=== PATIENT | female | born 1960 | race Two or more races ===

== ENCOUNTER 2016-12-02 15:19 | Outpatient (CLI) | payer BC ==
[2016-12-03 07:25] LABS: *RAPID PLASMA REAGIN QUAL Non Reactive (Non Reactive)
[2016-12-03 09:21] LABS: HEPATITIS C VIRUS AB 0.1 s/co ratio (0.0-0.9)
[2016-12-03 09:56] LABS: HIV-1 p24 ANTIGEN NON REACTIVE (NONREACTIVE); HIV-1/2 ANTIBODY NON REACTIVE (NONREACTIVE)
== END 2016-12-02 23:59 | disposition home or self-care (01) ==
LOC: LAB 15:19
PROVIDERS: ATTEND Family Medicine
DX: Z11.3 Encounter for screening for infections with a predominantly sexual mode of transmission (principal)
CPT/HCPCS: 86592; 86803; 87491; 87591; 88142

== ENCOUNTER 2016-12-22 08:56 | Outpatient (CLI) | payer BC | END 2016-12-22 23:59 | disposition home or self-care (01) | LOC: US 08:56 | PROVIDERS: ATTEND Family Medicine | DX: N85.2 Hypertrophy of uterus (principal) | CPT/HCPCS: 76856-TC ==

== ENCOUNTER 2017-03-12 09:39 | Outpatient (CLI) | payer BC ==
[2017-03-12 10:14] LABS: BASOPHILS % (AUTO) 0.3 % (0.0-2.0); EOSINOPHILS # (AUTO) 0.1 /CMM (0.0-0.7); EOSINOPHILS % (AUTO) 2.3 % (0.0-6.0); HEMATOCRIT 40 % (33-45); HEMOGLOBIN 13.3 g/dL (11.5-14.8); LYMPHOCYTES # (AUTO) 2.1 /CMM (0.8-4.8); LYMPHOCYTES % (AUTO) 34.5 % (20.0-44.0); MEAN CORPUSCULAR HEMOGLOBIN 28 PG (26.0-33.0); MEAN CORPUSCULAR HGB CONC 34 g/dl (31.0-36.0); MEAN CORPUSCULAR VOLUME 84 fL (82-100); MONOCYTES # (AUTO) 0.4 /CMM (0.1-1.30); MONOCYTES % (AUTO) 5.7 % (2.0-12.0); NEUTROPHILS # (AUTO) 3.5 /CMM (1.8-8.9); NEUTROPHILS % (AUTO) 57.2 % (43.0-81.0); PLATELET COUNT (AUTO) 350 /CMM (150-450); RDW COEFFICIENT OF VARIATION 13.6 (11.5-15.0); WHITE BLOOD COUNT (AUTO) 6.2 K/uL (4.3-11.0)
[2017-03-12 10:19] LABS: APPEARANCE,URINE CLEAR (CLEAR); BILIRUBIN,URINE NEGATIVE (NEGATIVE); BLOOD, URINE TRACE-INTA Ery/uL (NEGATIVE); COLOR,URINE YELLOW (YELLOW); KETONES,URINE NEGATIVE (NEGATIVE); LEUKOCYTE ESTERASE ,URINE NEGATIVE (NEGATIVE); NITRITE, URINE NEGATIVE (NEGATIVE); PH,URINE 5.5 (5.0-8.0); PROTEIN,URINE NEGATIVE (NEGATIVE); UGLUCOSE NEGATIVE (NEGATIVE); UROBILINOGEN,URINE 0.2 EU/dL (0.2)
[2017-03-12 10:21] LABS: RBC,URINE 0-2 /HPF (0-2)
[2017-03-12 10:22] LABS: BACTERIA,URINE None seen /HPF (None Seen); SQUAMOUS EPITHELIAL CELL,UR Few /HPF (None Seen); WBC,URINE NONE SEEN /HPF (0-3)
[2017-03-12 10:39] LABS: ALBUMIN 3.7 g/dL (3.4-5.0); BILIRUBIN,TOTAL 0.3 mg/dL (0.2-1.0); CALCIUM, SERUM 8.9 mg/dL (8.5-10.1); CREATININE 0.5 mg/dL (0.6-1.3); TOTAL PROTEIN, SERUM 7.6 g/dL (6.4-8.2)
[2017-03-12 10:43] LABS: THYROID STIMULATING HORMONE 1.972 uIU/mL (0.358-3.74)
== END 2017-03-12 23:59 | disposition home or self-care (01) ==
LOC: LAB 09:39
PROVIDERS: ATTEND Family Medicine
DX: N32.9 Bladder disorder, unspecified (principal); E78.5 Hyperlipidemia, unspecified
CPT/HCPCS: 36415; 80053-TC; 80061-TC; 81000-TC; 84439-TC; 84443-TC; 85025-TC

== ENCOUNTER 2017-10-18 19:46 | Emergency (ER) | payer OTHER, BC ==
[~2017-10-18] VITALS: Ht 154.9 cm; Wt 72.6 kg
[2017-10-18 19:51] VITALS: BP 129/78
== END 2017-10-18 20:11 | disposition home or self-care (01) ==
LOC: ER 19:53
DX: Z77.21 Contact with and (suspected) exposure to potentially hazardous body fluids (principal)
CPT/HCPCS: A4606; Z7610

== ENCOUNTER 2017-11-30 07:57 | Outpatient (CLI) | payer BC ==
[2017-11-30 09:19] LABS: APPEARANCE,URINE CLEAR (CLEAR); BILIRUBIN,URINE NEGATIVE (NEGATIVE); BLOOD, URINE TRACE-INTA Ery/uL (NEGATIVE); COLOR,URINE YELLOW (YELLOW); KETONES,URINE NEGATIVE (NEGATIVE); LEUKOCYTE ESTERASE ,URINE TRACE (NEGATIVE); NITRITE, URINE NEGATIVE (NEGATIVE); PROTEIN,URINE NEGATIVE (NEGATIVE); UGLUCOSE NEGATIVE (NEGATIVE); UROBILINOGEN,URINE 0.2 EU/dL (0.2)
[2017-11-30 09:23] LABS: ALBUMIN 3.7 g/dL (3.4-5.0); BILIRUBIN,TOTAL 0.3 mg/dL (0.2-1.0); CALCIUM, SERUM 8.8 mg/dL (8.5-10.1); CREATININE 0.6 mg/dL (0.6-1.3); POTASSIUM 4.1 mmol/L (3.5-5.1); TOTAL PROTEIN, SERUM 7.7 g/dL (6.4-8.2)
[2017-11-30 09:25] LABS: BASOPHILS % (AUTO) 0.4 % (0.0-2.0); EOSINOPHILS # (AUTO) 0.2 /CMM (0.0-0.7); EOSINOPHILS % (AUTO) 2.7 % (0.0-6.0); HEMATOCRIT 37 % (33-45); HEMOGLOBIN 12.4 g/dL (11.5-14.8); LYMPHOCYTES # (AUTO) 2.7 /CMM (0.8-4.8); LYMPHOCYTES % (AUTO) 40.7 % (20.0-44.0); MEAN CORPUSCULAR HEMOGLOBIN 28 PG (26.0-33.0); MEAN CORPUSCULAR HGB CONC 34 g/dl (31.0-36.0); MEAN CORPUSCULAR VOLUME 84 fL (82-100); MONOCYTES # (AUTO) 0.5 /CMM (0.1-1.30); MONOCYTES % (AUTO) 6.9 % (2.0-12.0); NEUTROPHILS # (AUTO) 3.3 /CMM (1.8-8.9); NEUTROPHILS % (AUTO) 49.3 % (43.0-81.0); PLATELET COUNT (AUTO) 362 /CMM (150-450); RDW COEFFICIENT OF VARIATION 13.2 (11.5-15.0); RED BLOOD CELL COUNT(AUTO) 4.41 MIL/uL (4.0-5.2); WHITE BLOOD COUNT (AUTO) 6.7 K/uL (4.3-11.0)
[2017-11-30 09:30] LABS: T4 (THYROXINE) 7.2 ug/dL (4.7-13.3); THYROID STIMULATING HORMONE 3.791 uIU/mL (0.358-3.74)
[2017-11-30 10:33] LABS: BACTERIA,URINE Rare /HPF (None Seen); RBC,URINE 0-2 /HPF (0-2); SQUAMOUS EPITHELIAL CELL,UR Rare /HPF (None Seen)
== END 2017-11-30 23:59 | disposition home or self-care (01) ==
LOC: LAB 07:57
PROVIDERS: ATTEND Family Medicine
DX: Z00.01 Encounter for general adult medical examination with abnormal findings (principal); Z11.59 Encounter for screening for other viral diseases; E55.9 Vitamin D deficiency, unspecified; M15.9 Polyosteoarthritis, unspecified; R79.89 Other specified abnormal findings of blood chemistry
CPT/HCPCS: 36415; 80053-TC; 80061-TC; 81000-TC; 82306; 84436-TC; 84443-TC; 85025-TC; 86431-TC; 86706; 86709-TC; 86803

== ENCOUNTER 2018-01-11 10:06 | Outpatient (CLI) | payer BC ==
[2018-01-12 08:13] LABS: THYROID PEROXIDASE (TPO) AB 15 IU/mL (0-34)
== END 2018-01-11 23:59 | disposition home or self-care (01) ==
LOC: US 10:06
PROVIDERS: ATTEND Family Medicine
DX: R31.9 Hematuria, unspecified (principal); R94.6 Abnormal results of thyroid function studies; R73.9 Hyperglycemia, unspecified
CPT/HCPCS: 36415; 76770-TC; 86376

== ENCOUNTER 2018-04-07 09:58 | Outpatient (CLI) | payer BC | END 2018-04-07 23:59 | disposition home or self-care (01) | LOC: MRI 09:58 | PROVIDERS: ATTEND Family Medicine | DX: G89.29 Other chronic pain (principal) | CPT/HCPCS: 72146-TC; 72148-TC ==

== ENCOUNTER 2019-04-28 16:18 | Outpatient (CLI) | payer BC | END 2019-04-28 23:59 | disposition home or self-care (01) | LOC: RAD 16:18 | PROVIDERS: ATTEND Family Medicine | DX: I25.10 Atherosclerotic heart disease of native coronary artery without angina pectoris (principal); M47.814 Spondylosis without myelopathy or radiculopathy, thoracic region; F17.200 Nicotine dependence, unspecified, uncomplicated | CPT/HCPCS: 71250-TC ==

== ENCOUNTER 2019-06-02 16:17 | Outpatient (CLI) | payer BC | END 2019-06-02 23:59 | disposition home or self-care (01) | LOC: RAD 16:17 | PROVIDERS: ATTEND Family Medicine | DX: M19.011 Primary osteoarthritis, right shoulder (principal) | CPT/HCPCS: 73030-TC ==

== ENCOUNTER 2020-02-09 18:48 | Emergency (ER) | payer BC, OTHER ==
[~2020-02-09] VITALS: Ht 165.1 cm; Wt 63.5 kg
[2020-02-09 19:08] VITALS: BP 140/76
--- NOTE | 2020-02-09 20:05 | NUR ---
COVID SWAB DONE AND SENT TO LAB
--- NOTE | 2020-02-09 20:06 | NUR ---
Patient discharged to home in stable condition. Written and verbal after care instructions given. Patient verbalizes understanding of instruction. Pt ambulatory with a steady gait
== END 2020-02-09 20:08 | disposition home or self-care (01) ==
LOC: ER 18:53
DX: Z03.818 Encounter for observation for suspected exposure to other biological agents ruled out (principal); E03.9 Hypothyroidism, unspecified; R03.0 Elevated blood-pressure reading, without diagnosis of hypertension
CPT/HCPCS: 99283; U0003

== ENCOUNTER 2020-03-16 14:54 | Emergency (ER) | payer OTHER ==
[~2020-03-16] VITALS: Ht 162.6 cm; Wt 65.8 kg
[2020-03-16 16:32] VITALS: BP 128/81
--- NOTE | 2020-03-16 16:36 | NUR ---
Patient discharged to home in stable condition. Written and verbal after care instructions given. Patient verbalizes understanding of instruction.
== END 2020-03-16 16:36 | disposition home or self-care (01) ==
LOC: ER 14:56
DX: Z03.818 Encounter for observation for suspected exposure to other biological agents ruled out (principal)
CPT/HCPCS: 99283; C9803; L0172; U0003

== ENCOUNTER 2020-03-28 14:54 | Emergency (ER) | payer OTHER ==
[~2020-03-28] VITALS: Ht 157.5 cm; Wt 65.3 kg
[2020-03-28 14:59] VITALS: BP 118/80
== END 2020-03-28 15:21 | disposition home or self-care (01) ==
LOC: ER 14:57
DX: Z11.59 Encounter for screening for other viral diseases (principal)
CPT/HCPCS: 99283; C9803; U0003

== ENCOUNTER 2020-04-11 14:05 | Emergency (ER) | payer OTHER ==
[~2020-04-11] VITALS: Ht 157.5 cm; Wt 66.2 kg
[2020-04-11 14:09] VITALS: BP 140/75
== END 2020-04-11 15:13 | disposition home or self-care (01) ==
LOC: ER 14:05
DX: Z11.59 Encounter for screening for other viral diseases (principal)
CPT/HCPCS: 99283; C9803; U0003

== ENCOUNTER 2020-04-19 14:43 | Emergency (ER) | payer OTHER ==
[~2020-04-19] VITALS: Ht 157.5 cm; Wt 65.8 kg
[2020-04-19 14:57] VITALS: BP 132/79
== END 2020-04-19 15:27 | disposition home or self-care (01) ==
LOC: ER 14:45
DX: Z11.59 Encounter for screening for other viral diseases (principal)
CPT/HCPCS: 99283; C9803; U0003

== ENCOUNTER 2020-04-27 15:17 | Emergency (ER) | payer OTHER ==
[~2020-04-27] VITALS: Ht 157.5 cm; Wt 64.4 kg
--- NOTE | 2020-04-27 15:20 | NUR ---
Pt called to triage pt not in waiting room
[2020-04-27 15:37] VITALS: BP 131/79
--- NOTE | 2020-04-27 16:11 | NUR ---
Patient discharged to home in stable condition. Written and verbal after care instructions given. Patient verbalizes understanding of instruction. Pt ambulatory with a steady gait
--- NOTE | 2020-04-27 16:11 | NUR ---
COVID SWAB DONE AND SENT TO LAB
== END 2020-04-27 16:11 | disposition home or self-care (01) ==
LOC: ER 15:18
DX: Z11.59 Encounter for screening for other viral diseases (principal)
CPT/HCPCS: 99283; C9803; U0003

== ENCOUNTER 2020-05-02 11:44 | Emergency (ER) | payer OTHER ==
[~2020-05-02] VITALS: Ht 157.5 cm; Wt 63.5 kg
[2020-05-02 11:51] VITALS: BP 128/83
== END 2020-05-02 12:45 | disposition home or self-care (01) ==
LOC: ER 11:44
DX: Z20.828 Contact with and (suspected) exposure to other viral communicable diseases (principal)
CPT/HCPCS: 99283; C9803; U0003

== ENCOUNTER 2020-05-11 15:10 | Emergency (ER) | payer OTHER ==
[~2020-05-11] VITALS: Ht 157.5 cm; Wt 63.5 kg
[2020-05-11 15:12] VITALS: BP 128/79
== END 2020-05-11 15:33 | disposition home or self-care (01) ==
LOC: ER 15:12
DX: Z20.828 Contact with and (suspected) exposure to other viral communicable diseases (principal)
CPT/HCPCS: 99283; C9803; U0003

== ENCOUNTER 2020-05-17 15:26 | Emergency (ER) | payer OTHER ==
[~2020-05-17] VITALS: Ht 157.5 cm; Wt 63.5 kg
[2020-05-17 15:38] VITALS: BP 128/70
--- NOTE | 2020-05-17 15:51 | NUR ---
COVID SWAB SENT
== END 2020-05-17 15:52 | disposition home or self-care (01) ==
LOC: ER 15:26
DX: Z20.828 Contact with and (suspected) exposure to other viral communicable diseases (principal)
CPT/HCPCS: 99283; C9803; U0003

== ENCOUNTER 2020-05-23 15:51 | Emergency (ER) | payer OTHER ==
[~2020-05-23] VITALS: Ht 157.5 cm; Wt 63.5 kg
[2020-05-23 15:55] VITALS: BP 122/68
== END 2020-05-23 16:16 | disposition home or self-care (01) ==
LOC: ER 15:51
DX: Z20.828 Contact with and (suspected) exposure to other viral communicable diseases (principal)
CPT/HCPCS: 99283; C9803; U0003

== ENCOUNTER 2020-06-14 19:36 | Emergency (ER) | payer OTHER ==
[~2020-06-14] VITALS: Ht 157.5 cm; Wt 63.5 kg
[2020-06-14 19:41] VITALS: BP 131/73
--- NOTE | 2020-06-14 19:47 | NUR ---
CALLED FOR COVID SWAB
== END 2020-06-14 19:59 | disposition home or self-care (01) ==
LOC: ER 19:36
DX: Z20.828 Contact with and (suspected) exposure to other viral communicable diseases (principal)
CPT/HCPCS: 99283; C9803; U0003

== ENCOUNTER 2020-06-20 11:31 | Emergency (ER) | payer OTHER ==
[~2020-06-20] VITALS: Ht 157.5 cm; Wt 63.5 kg
[2020-06-20 11:43] VITALS: BP 145/76
--- NOTE | 2020-06-20 14:25 | NUR ---
COVID SWAB DONE AND SENT TO LAB
--- NOTE | 2020-06-20 14:26 | NUR ---
Patient discharged to home in stable condition. Written and verbal after care instructions given. Patient verbalizes understanding of instruction. Pt ambulatory with a steady gait
== END 2020-06-20 14:26 | disposition home or self-care (01) ==
LOC: ER 11:33
DX: Z20.828 Contact with and (suspected) exposure to other viral communicable diseases (principal)
CPT/HCPCS: 99283; C9803; U0003

== ENCOUNTER 2020-06-27 15:25 | Emergency (ER) | payer OTHER ==
[~2020-06-27] VITALS: Ht 157.5 cm; Wt 63.5 kg
[2020-06-27 15:32] VITALS: BP 124/89
== END 2020-06-27 16:28 | disposition home or self-care (01) ==
LOC: ER 15:27
DX: Z20.828 Contact with and (suspected) exposure to other viral communicable diseases (principal)
CPT/HCPCS: 99283; C9803; U0003

== ENCOUNTER 2020-07-29 12:44 | Emergency (ER) | payer OTHER ==
[~2020-07-29] VITALS: Ht 157.5 cm; Wt 63.5 kg
[2020-07-29 12:48] VITALS: BP 131/81
--- NOTE | 2020-07-29 13:06 | NUR ---
Patient discharged to home in stable condition. Written and verbal after care instructions given. Patient verbalizes understanding of instruction.
== END 2020-07-29 13:08 | disposition home or self-care (01) ==
LOC: ER 12:45
DX: Z20.828 Contact with and (suspected) exposure to other viral communicable diseases (principal)
CPT/HCPCS: 99283; C9803; U0003

== ENCOUNTER 2020-12-04 11:47 | Outpatient (CLI) | payer BC ==
[2020-12-04 12:30] LABS: BASOPHILS # (AUTO) 0.1 /CMM (0.0-0.2); BASOPHILS % (AUTO) 1.1 % (0.0-2.0); EOSINOPHILS % (AUTO) 1.6 % (0.0-6.0); HEMATOCRIT 43 % (33-45); LYMPHOCYTES % (AUTO) 33.7 % (20.0-44.0); MEAN CORPUSCULAR HGB CONC 33 g/dl (31.0-36.0); MEAN CORPUSCULAR VOLUME 86 fL (82-100); MONOCYTES # (AUTO) 0.3 /CMM (0.1-1.30); MONOCYTES % (AUTO) 5.8 % (2.0-12.0); NEUTROPHILS # (AUTO) 3.4 /CMM (1.8-8.9); NEUTROPHILS % (AUTO) 57.8 % (43.0-81.0); PLATELET COUNT (AUTO) 377 /CMM (150-450); RED BLOOD CELL COUNT(AUTO) 4.98 MIL/uL (4.0-5.2); WHITE BLOOD COUNT (AUTO) 5.9 K/uL (4.3-11.0)
[2020-12-04 12:31] LABS: BILIRUBIN,URINE NEGATIVE (NEGATIVE); COLOR,URINE YELLOW (YELLOW); LEUKOCYTE ESTERASE ,URINE NEGATIVE (NEGATIVE); NITRITE, URINE NEGATIVE (NEGATIVE); PROTEIN,URINE NEGATIVE (NEGATIVE); UGLUCOSE NEGATIVE (NEGATIVE); UROBILINOGEN,URINE 0.2 EU/dL (0.2)
[2020-12-04 12:54] LABS: ALBUMIN 4.1 g/dL (3.4-5.0); BILIRUBIN,TOTAL 0.4 mg/dL (0.2-1.0); CALCIUM, SERUM 9.3 mg/dL (8.5-10.1); CREATININE 0.6 mg/dL (0.6-1.3); POTASSIUM 3.8 mmol/L (3.5-5.1)
[2020-12-04 13:09] LABS: THYROID STIMULATING HORMONE 1.412 uIU/mL (0.358-3.74)
== END 2020-12-04 23:59 | disposition home or self-care (01) ==
LOC: LAB 11:47
PROVIDERS: ATTEND Family Medicine
DX: E78.5 Hyperlipidemia, unspecified (principal); E55.9 Vitamin D deficiency, unspecified; Z00.01 Encounter for general adult medical examination with abnormal findings
CPT/HCPCS: 36415; 80053-TC; 80061-TC; 82306; 84439-TC; 84443-TC; 85025-TC

== ENCOUNTER 2021-12-27 13:17 | Emergency (ER) | payer OTHER ==
[~2021-12-27] VITALS: Ht 157.5 cm; Wt 63.5 kg
[2021-12-27 13:51] VITALS: BP 117/80
--- NOTE | 2021-12-27 13:51 | NUR ---
BIBS C/O LEFT GREATER TOE PAIN AND BRUISING S/P JARETH LIFT FELL ON TOE WHILE AT WORK
[2021-12-27] MEDS ORDERED: IBUPROFEN 600 MG TABLET PO ONE (14:00)
[2021-12-27] MEDS ORDERED: IBUPROFEN 600 MG TABLET ONE (14:25)
--- NOTE | 2021-12-27 15:10 | NUR ---
CALLED [facility] READING- LEFT FOOT
--- NOTE | 2021-12-27 15:44 | NUR ---
CALLED XRAY TO RESULT XRAY, WILL RELEASE IT IN A FEW
--- NOTE | 2021-12-27 16:33 | NUR ---
PT RETURNED TO WORK, PT WAS CALLED ON HER CELL PHONE AND LEFT A MESSAGE THAT HER DISCHARGE PAPERS WERE READY AND THAT HER X RAY RESULTS WERE IN.
== END 2021-12-27 16:40 | disposition home or self-care (01) ==
LOC: ER 14:30
DX: S93.502A Unspecified sprain of left great toe, initial encounter (principal); Z60.2 Problems related to living alone; W20.8XXA Other cause of strike by thrown, projected or falling object, initial encounter; Y93.89 Activity, other specified; Y92.89 Other specified places as the place of occurrence of the external cause; Y99.8 Other external cause status
CPT/HCPCS: 73630-TC

== ENCOUNTER 2022-07-30 11:39 | Outpatient (CLI) | payer BC, OTHER ==
[2022-07-30 12:23] LABS: BILIRUBIN,URINE NEGATIVE (NEGATIVE); CALCIUM, SERUM 9.1 mg/dL (8.5-10.1); COLOR,URINE YELLOW (YELLOW); CREATININE 0.6 mg/dL (0.6-1.3); LEUKOCYTE ESTERASE ,URINE NEGATIVE (NEGATIVE); NITRITE, URINE NEGATIVE (NEGATIVE); PH,URINE 5.5 (5.0-8.0); POTASSIUM 3.8 mmol/L (3.5-5.1); PROTEIN,URINE NEGATIVE (NEGATIVE); UGLUCOSE NEGATIVE (NEGATIVE); UROBILINOGEN,URINE 0.2 EU/dL (0.2)
[2022-07-30 12:47] LABS: BACTERIA,URINE None seen /HPF (None Seen); MUCUS,URINE Few /LPF (None Seen); SQUAMOUS EPITHELIAL CELL,UR Few /HPF (None Seen); URIC ACID CRYSTALS,URINE Few /HPF (None Seen); WBC,URINE 0-2 /HPF (0-3)
== END 2022-07-30 23:59 | disposition home or self-care (01) ==
LOC: LAB 11:39
PROVIDERS: ATTEND Family Medicine
DX: R31.9 Hematuria, unspecified (principal); Z00.00 Encounter for general adult medical examination without abnormal findings
CPT/HCPCS: 36415; 80048-TC; 81001; 87086-TC

== ENCOUNTER 2022-09-26 11:08 | Outpatient (CLI) | payer BC, OTHER ==
[2022-09-26] MEDS ORDERED: CT SWABBABLE VALVE TRANS SET 1 EA INFUS.SET MC ONE (12:44)
[2022-09-26] MEDS ORDERED: IOHEXOL-350 100 ML VIAL IV ONE (12:44)
[2022-09-26] MEDS ORDERED: IV NS 0.9% 250 ML IV ONE (12:44)
== END 2022-09-26 23:59 | disposition home or self-care (01) ==
LOC: CT 11:08
PROVIDERS: ATTEND Family Medicine
DX: K57.30 Diverticulosis of large intestine without perforation or abscess without bleeding (principal); R31.9 Hematuria, unspecified
CPT/HCPCS: 74178; J7050; Q9967

== ENCOUNTER 2022-12-11 15:08 | Emergency (ER) | payer OTHER ==
[~2022-12-11] VITALS: Ht 157.5 cm; Wt 63.5 kg
[2022-12-11 15:17] VITALS: BP 142/58
[2022-12-11] MEDS ORDERED: IBUP-1953 PO (16:21)
[2022-12-11] MEDS ORDERED: CYCL5TAB PO (16:28)
== END 2022-12-11 16:35 | disposition home or self-care (01) ==
LOC: ER 15:15
DX: M51.36 Other intervertebral disc degeneration, lumbar region (principal); M54.50 Low back pain, unspecified; Z60.2 Problems related to living alone
CPT/HCPCS: 72110-TC

== ENCOUNTER 2024-02-01 07:39 | Emergency (ER) | payer BC, OTHER ==
[~2024-02-01] VITALS: Ht 157.5 cm; Wt 62.6 kg
[~2024-02-01 07:39] MED LIST: CYCL5TAB PO; IBUP-1953 PO
[2024-02-01 08:12] LABS: BASOPHILS % (AUTO) 0.5 % (0.0-2.0); EOSINOPHILS # (AUTO) 0.3 K/uL (0.0-0.7); HEMATOCRIT 36 % (33-45); HEMOGLOBIN 12.1 g/dL (11.5-14.8); LYMPHOCYTES # (AUTO) 3.3 K/uL (0.8-4.8); LYMPHOCYTES % (AUTO) 46.2 % (20.0-44.0); MEAN CORPUSCULAR HEMOGLOBIN 28 PG (26.0-33.0); MEAN CORPUSCULAR HGB CONC 33 g/dl (31.0-36.0); MEAN CORPUSCULAR VOLUME 85 fL (82-100); MONOCYTES # (AUTO) 0.5 K/uL (0.1-1.30); MONOCYTES % (AUTO) 7.4 % (2.0-12.0); NEUTROPHILS % (AUTO) 41.9 % (43.0-81.0); PLATELET COUNT (AUTO) 343 K/uL (150-450); RED BLOOD CELL COUNT(AUTO) 4.26 MIL/uL (4.0-5.2); RED CELL DISTRIBUTION WIDTH 13.6 % (11.5-15.0); WHITE BLOOD COUNT (AUTO) 7.1 K/uL (4.3-11.0)
[2024-02-01 08:20] LABS: CALCIUM, SERUM 8.4 mg/dL (8.5-10.1); CARBON DIOXIDE 29 mmol/L (21-32); CHLORIDE 98 mmol/L (98-107); CREATININE 0.6 mg/dL (0.6-1.3); GLUCOSE 101 mg/dL (74-106); POTASSIUM 4.4 mmol/L (3.5-5.1); SODIUM SERUM 134 mmol/L (136-145); UREA NITROGEN, BLOOD 24 mg/dL (7-18)
[2024-02-01 08:45] VITALS: BP 140/62; TEMP 98.2; O2SAT 98
== END 2024-02-01 08:46 | disposition home or self-care (01) ==
LOC: ER 07:43
DX: R07.89 Other chest pain (principal); F17.200 Nicotine dependence, unspecified, uncomplicated; Z79.899 Other long term (current) drug therapy; Z60.2 Problems related to living alone
CPT/HCPCS: 36415; 71045-TC; 80048-TC; 84484-TC; 85025-TC

== ENCOUNTER 2025-01-12 14:42 | Emergency (ER) | payer BC, OTHER ==
[~2025-01-12] VITALS: Ht 157.5 cm; Wt 63.5 kg
[2025-01-12 14:44] VITALS: TEMP 98.5
[2025-01-12] MEDS ORDERED: ACETAMINOPHEN 325 MG TABLET ONE (17:03)
[2025-01-12] MEDS: ACETAMINOPHEN 325 MG TABLET PO ONE (17:11)
[2025-01-12 19:13] VITALS: BP 119/74; O2SAT 100
== END 2025-01-12 19:14 | disposition home or self-care (01) ==
LOC: ER 14:45
DX: S09.8XXA Other specified injuries of head, initial encounter (principal); M25.511 Pain in right shoulder; M25.512 Pain in left shoulder; E78.5 Hyperlipidemia, unspecified; F17.200 Nicotine dependence, unspecified, uncomplicated; Z60.2 Problems related to living alone; W01.0XXA Fall on same level from slipping, tripping and stumbling without subsequent striking against object, initial encounter; Y93.89 Activity, other specified; Y92.89 Other specified places as the place of occurrence of the external cause; Y99.0 Civilian activity done for income or pay
CPT/HCPCS: 70450-TC; 73030-TC

== ENCOUNTER 2025-01-23 06:39 | Emergency (ER) | payer OTHER ==
[~2025-01-23] VITALS: Ht 157.5 cm; Wt 63.5 kg
[2025-01-23 06:52] VITALS: BP 149/76; TEMP 98.6; O2SAT 96
[2025-01-23] MEDS ORDERED: NAPR-1009 PO (07:00)
== END 2025-01-23 07:07 | disposition home or self-care (01) ==
LOC: ER 06:41
DX: M54.50 Low back pain, unspecified (principal); M25.552 Pain in left hip; F17.200 Nicotine dependence, unspecified, uncomplicated; Z60.2 Problems related to living alone